=== PATIENT | female | born 1990 | race Two or more races ===

== ENCOUNTER 2021-10-21 10:39 | Observation (INO) | payer MEDICAID ==
[~2021-10-21] VITALS: Ht 157.5 cm; Wt 136.1 kg
[2021-10-21 13:22] LABS: CLARITY URINE CLEAR (CLEAR); COLOR URINE YELLOW (YELLOW); KETONES URINE TRACE (NEGATIVE); LEUKOCYTE ESTERASE URINE NEGATIVE (NEGATIVE); NITRITE URINE NEGATIVE (NEGATIVE); OCCULT BLOOD URINE NEGATIVE (NEGATIVE); PH URINE 6.5 (4.5-8.0); PROTEIN URINE NEGATIVE (NEGATIVE); SPECIFIC GRAVITY URINE 1.042 (1.005-1.030); UROBILINOGEN URINE 0.2 E.U./dL (0.2-1.0)
== END 2021-10-21 14:15 | disposition left against medical advice (07) ==
LOC: 8 EST A/PP 10:39
PROVIDERS: ADMIT Obstetrics & Gynecology; ATTEND Obstetrics & Gynecology
DX: O99.891 Other specified diseases and conditions complicating pregnancy (principal); M54.9 Dorsalgia, unspecified; R10.30 Lower abdominal pain, unspecified; O36.8130 Decreased fetal movements, third trimester, not applicable or unspecified; O26.893 Other specified pregnancy related conditions, third trimester; L03.311 Cellulitis of abdominal wall; Z3A.33 33 weeks gestation of pregnancy
CPT/HCPCS: 76805; 76818; 81003; G0378; 99281